=== PATIENT | female | born 1970 | race Caucasian/White ===

== ENCOUNTER 2023-09-02 16:30 | Emergency (ER) | payer OTHER ==
[~2023-09-02] VITALS: Ht 157.5 cm; Wt 74.8 kg
[2023-09-02] MEDS ORDERED: NITR100C6 PO (16:59)
[2023-09-02 17:04] VITALS: BP 121/75; TEMP 97.9; O2SAT 99
[2023-09-02 18:08] LABS: APPEARANCE,URINE CLEAR (CLEAR); BILIRUBIN,URINE NEGATIVE (NEGATIVE); BLOOD, URINE NEGATIVE Ery/uL (NEGATIVE); COLOR,URINE YELLOW (YELLOW); KETONES,URINE NEGATIVE (NEGATIVE); LEUKOCYTE ESTERASE ,URINE 1+ (NEGATIVE); NITRITE, URINE NEGATIVE (NEGATIVE); PH,URINE 6.5 (5.0-8.0); PROTEIN,URINE NEGATIVE (NEGATIVE); UGLUCOSE NEGATIVE (NEGATIVE); UROBILINOGEN,URINE 0.2 EU/dL (0.2)
[2023-09-02 18:35] LABS: ADD URINE CULTURE YES; BACTERIA,URINE Few /HPF (None Seen); RBC,URINE NONE SEEN /HPF (0-2)
== END 2023-09-02 17:05 | disposition home or self-care (01) ==
LOC: ER 16:30
DX: N39.0 Urinary tract infection, site not specified (principal)
CPT/HCPCS: 81001; 87086-TC